=== PATIENT | female | born 1950 | race Caucasian/White ===

== ENCOUNTER 2024-07-12 18:03 | Emergency (ER) | payer MEDICARE, OTHER ==
[~2024-07-12] VITALS: Ht 167.6 cm; Wt 158.8 kg
[2024-07-12] MEDS: HYDROCODONE/APAP 10MG-325MG TAB PO STA (19:14)
[2024-07-12] MEDS ORDERED: BACTRIM 400-801 EACH PO (19:18)
[2024-07-12] MEDS ORDERED: CEPHALEXIN500 MG PO (19:18)
[2024-07-12] MEDS ORDERED: DIFLUCAN100 MG PO (21:23)
[2024-07-12 21:33] VITALS: BP 115/61; PULSE 77; RESP 19; TEMP 98.2
[2024-07-12 21:47] VITALS: PULSE 64; RESP 17; TEMP 98.5; O2SAT 98
== END 2024-07-12 22:27 ==
LOC: ER 18:09
DX: M71.062 Abscess of bursa, left knee (principal)
CPT/HCPCS: 99283